=== PATIENT | female | born 2000 | race Caucasian/White ===

== ENCOUNTER 2023-06-09 20:13 | Emergency (ER) | payer BC ==
[2023-06-09] MEDS: Ketorolac 30 MG/ML SDV IM ONE (20:51)
== END 2023-06-09 20:55 | disposition home or self-care (01) ==
LOC: VM.ED 20:13
DX: K82.9 Disease of gallbladder, unspecified (principal); Z88.0 Allergy status to penicillin; Z88.1 Allergy status to other antibiotic agents
CPT/HCPCS: 93005; 93010; 96372; 99284; J1885